=== PATIENT | male | born 1955 | race Caucasian/White ===

== ENCOUNTER 2017-03-11 19:17 | Emergency (ER) | payer OTHER ==
[~2017-03-11] VITALS: Ht 177.8 cm; Wt 88.2 kg
[2017-03-11 20:12] VITALS: Ht 177.8 cm; Wt 88.2 kg
[2017-03-12 00:03] VITALS: BP 140/73
== END 2017-03-12 00:03 | disposition home or self-care (01) ==
LOC: ED 19:17
DX: R04.0 Epistaxis (principal)